=== PATIENT | female | born 1990 | race American Indian/Alaskan Native ===

== ENCOUNTER 2022-02-22 02:35 | Emergency (ER) | payer MEDICAID, OTHER ==
[2022-02-22] MEDS ORDERED: ASPIRIN 325 MG TAB PO ONE (04:48)
--- NOTE | 2022-02-22 05:36 | XRay Report ---
CHEST 1 VIEW INDICATION / CLINICAL INFORMATION: chest pain. FINDINGS: SUPPORT DEVICES: None. HEART / MEDIASTINUM: No significant abnormality. LUNGS / PLEURA: No significant pulmonary or pleural abnormality. No pneumothorax. ADDITIONAL FINDINGS: No significant additional findings. IMPRESSION: 1. No acute findings. Signer Name: Wood Oswald MD Signed: 02/22/2022 5:32 AM Workstation Name: [id number]
[2022-02-22 05:40] LABS: Basophils % (Auto) 0.7 % (0.0-1.8); Eosinophils # (Auto) 0.1 K/mm3 (0.0-0.4); Eosinophils % (Auto) 2.2 % (0.0-4.3); Hematocrit 34.6 % (30.3-42.9); Hemoglobin 11.2 gm/dl (10.1-14.3); Lymphocytes # (Auto) 2.3 K/mm3 (1.2-5.4); Lymphocytes % (Auto) 44.1 % (13.4-35.0); Mean Corpuscular HGB Conc 32 % (30-34); Mean Corpuscular Volume 88 fl (79-97); Monocytes # (Auto) 0.3 K/mm3 (0.0-0.8); Monocytes % (Auto) 6.4 % (0.0-7.3); Platelet Count 220 K/mm3 (140-440); Red Blood Count 3.93 M/mm3 (3.65-5.03); Red Cell Distribution Width 13.5 % (13.2-15.2)
[2022-02-22 05:57] LABS: Alanine Aminotransferase 12 units/L (7-56); Albumin 3.7 g/dL (3.9-5); Blood Urea Nitrogen 15 mg/dL (7-17); Calcium 9.1 mg/dL (8.4-10.2); Hemolysis Index 12
[2022-02-22 05:58] LABS: BUN/Creatinine Ratio 21
--- NOTE | 2022-02-22 06:05 | Emergency Department Report ---
<FRANCESCA CAMACHO - Last Filed: 02/22/22 06:36> ED Chest Pain HPI - General Chief Complaint: Chest Pain Stated Complaint: CHEST PAIN Source: EMS Mode of arrival: Stretcher Limitations: No Limitations - History of Present Illness Initial Comments: Patient is a 32-year-old -Japanese female with a history of asthma and chronic bronchitis who presented to the ED with complaint of acute onset persistent left-sided chest pain that started when she was walking on the street for the last 2 days. Patient also complains of persistent intermittent cough wh ich she describes as dry and raspy. Patient states that pain has been intermittent and persistent and it is sharp and reproducible when she walks or when she palpates the chest wall. Patient denies dizziness, syncope, shortness of breath, fever, chills, headache, palpitations, abdominal pain, diaphoresis, neck pain and upper extremity pain. MD Complaint: chest pain (Left-sided chest pain), other (Persistent dry cough) -: Sudden, days(s) (2) Onset: during exertion Pain Location: left chest Pain Radiation: none Severity scale (0 -10): 5 Quality: aching, sharp Consistency: intermittent Improves With: rest Worsens With: exertion, palpation, movement re: denies: nausea, vomting, diaphoresis, dyspnea, sense of impending doom Other Symptoms: cough. denies: fever, syncope, rash, acid taste in mouth, leg swelling, palpitations Treatments Prior to Arrival: none - Related Data On Oral Contraceptives: No Previous Rx's Medication Instructions Recorded Last Taken Type Benzonatate [Tessalon Perles] 100 mg PO Q8HR #30 cap 02/22/22 Unknown Rx Ibuprofen [Motrin] 800 mg PO Q8HR PRN #30 tablet 02/22/22 Unknown Rx methylPREDNISolone [Medrol 4MG 4 mg PO DAILY #21 tab 02/22/22 Unknown Rx DOSEPAK (21 tabs)] Allergies Allergy/AdvReac Type Severity Reaction Status Date / Time No Known Allergies Allergy Unverified 02/22/22 03:07 Heart Score - HEART Score History: Slightly suspicious EKG: Normal Age: < 45 Risk factors: No known risk factors Troponin: < normal limit HEART Score: 0 - EKG Read Time Time EKG Completed: 04:00 EKG Read Time: 04:05 - Critical Actions Critical Actions: 0-3 pts:0.9-1.7%risk of adverse cardiac event.Candidate for discharge ED Review of Systems Constitutional: denies: chills, fever Eyes: denies: eye pain, eye discharge, vision change ENT: denies: ear pain, throat pain Respiratory: cough. denies: shortness of breath, wheezing Cardiovascular: chest pain (Left-sided chest pain). denies: palpitations Endocrine: no symptoms reported Gastrointestinal: denies: abdominal pain, nausea, vomiting, diarrhea Genitourinary: denies: urgency, dysuria, discharge Musculoskeletal: denies: back pain, joint swelling, arthralgia Skin: denies: rash, lesions Neurological: denies: headache, weakness, paresthesias Psychiatric: denies: anxiety, depression Hematological/Lymphatic: denies: easy bleeding, easy bruising ED Past Medical Hx - Medications Home Medications: Home Medications Medication Instructions Recorded Confirmed Last Taken Type Benzonatate [Tessalon Perles] 100 mg PO Q8HR #30 cap 02/22/22 Unknown Rx Ibuprofen [Motrin] 800 mg PO Q8HR PRN #30 tablet 02/22/22 Unknown Rx methylPREDNISolone [Medrol 4MG 4 mg PO DAILY #21 tab 02/22/22 Unknown Rx DOSEPAK (21 tabs)] ED Physical Exam - General Limitations: No Limitations General appearance: alert, in no apparent distress - Head Head exam: Present: atraumatic, normocephalic, normal inspection - Eye Eye exam: Present: normal appearance, PERRL, EOMI Pupils: Present: normal accommodation - ENT ENT exam: Present: normal exam, normal orophraynx, mucous membranes moist, TM's normal bilaterally, normal external ear exam - Neck Neck exam: Present: normal inspection, full ROM. Absent: tenderness - Respiratory Respiratory exam: Present: normal lung sounds bilaterally, chest wall tenderness (Palpable reproducible left-sided chest wall tenderness). Absent: respiratory distress, wheezes, rales, rhonchi, accessory muscle use, decreased breath sounds, prolonged expiratory - Cardiovascular Cardiovascular Exam: Present: regular rate, normal rhythm, normal heart sounds. Absent: systolic murmur, diastolic murmur, rubs, gallop - GI/Abdominal GI/Abdominal exam: Present: soft, normal bowel sounds. Absent: tenderness, guarding, hyperactive bowel sounds, hypoactive bowel sounds, organomegaly - Extremities Exam Extremities exam: Present: normal inspection, full ROM, normal capillary refill - Back Exam Back exam: Present: normal inspection, full ROM. Absent: tenderness, CVA tend erness (R), CVA tenderness (L), muscle spasm, paraspinal tenderness, vertebral tenderness - Neurological Exam Neurological exam: Present: alert, oriented X3, CN II-XII intact, normal gait, reflexes normal - Psychiatric Psychiatric exam: Present: normal affect, normal mood - Skin Skin exam: Present: warm, dry, intact, normal color. Absent: rash JOHNNY score - Johnny Score Age > 65: (0) No Aspirin use within the Past 7 Days: (0) No 3 or more CAD Risk Factors: (0) No 2 or more Angina events in past 24 hrs: (0) No Known CAD with more than 50% Stenosis: (0) No Elevated Cardiac Markers: (0) No ST Deviation Greater than 0.5mm: (0) No JOHNNY Score: 0 ED Medical Decision Making - Lab Data Result diagrams: 02/22/22 05:18 02/22/22 05:18 - EKG Data EKG shows normal: sinus rhythm Rate: normal - EKG Data Interpretation: normal EKG 02/22/22 07:13 EKG shows normal sinus rhythm with a ventricular rate of [address] or T wave abnormalities. - Radiology Data Radiology results: report reviewed, image reviewed - Medical Decision Making This is a 32-year-old -Japanese female with a history of asthma and chronic bronchitis who presented to the ED with complaint of acute onset persistent left-sided chest pain that started when she was walking on the street for the last 2 days. Patient also complains of persistent intermittent cough which she describes as dry and raspy. Patient states that pain has been intermittent and persistent and it is sharp and reproducible when she walks or when she palpates the chest wall. In the ED, patient is alert and oriented x3 and is not in any distress. EKG shows normal sinus rhythm and a ventricular rate of [address] or T wave abnormalities. Chest x-ray showed no acute cardiopulmonary abnormalities or pneumonitis. Lab test results were reviewed and are all nonactionable including initial troponin. Patient's heart score is 0 and patient is PERC negative by Wells criteria. Based on the patient's history and physical exam findings, lab test results, EKG reports and imaging report, and the fact that the patient's heart score is 0 patient's symptoms are likely musculoskeletal chest wall due to costochondritis or muscle strain. Patient was discharged home on medications and advised to follow-up with her primary care physician in 5 to 7 days for reevaluation. - Differential Diagnosis ACS; PE; pneumonia; costochondritis; muscle strain ED Disposition Clinical Impression: Acute costochondritis, Acute nonspecific chest pain with low risk of coronary artery disease Muscle strain of chest wall Qualifiers: Encounter type: initial encounter Qualified Code(s): S29.011A - Strain of muscle and tendon of front wall of thorax, initial encounter Acute bronchitis Qualifiers: Bronchitis organism: other organism Qualified Code(s): J20.8 - Acute bronchitis due to other specified organisms Disposition: HOME / SELF CARE / HOMELESS Is pt being admited?: No Does the pt Need Aspirin: No Condition: Stable Instructions: Costochondritis, [id number], Chest Wall Pain, [id number], Muscle Strain, [id number], Acute Bronchitis, Adult, Vekk-xl-Rebb, Nonspecific Chest Pain, Adult, [id number]-bp-Mycs, Chest Pain (ED), Acute Bronchitis (ED) Additional Instructions: All lab test results were reviewed and are all nonactionable. Chest x-ray showed no acute cardiopulmonary abnormalities or pneumonitis. EKG shows normal sinus rhythm with a ventricular rate of [address] or T wave abnormalities. Your symptoms are likely musculoskeletal as they are reproduced on physical exam when the chest wall is palpated. You do not have any risk factors for coronary artery disease. Therefore take medications as needed for pain, drink plenty of fluids and follow-up with your primary care physician in 7 to 10 days for reevaluation. Return to the ED immediately if symptoms get worse. Prescriptions: methylPREDNISolone [Medrol 4MG DOSEPAK (21 tabs)] 4 mg PO DAILY #21 tab Ibuprofen [Motrin] 800 mg PO Q8HR PRN #30 tablet PRN Reason: Pain , Severe (7-10) Benzonatate [Tessalon Perles] 100 mg PO Q8HR #30 cap Referrals: [facility] [Provider Group] - 3-5 Days Time of Disposition: 06:03 Print Language: MACEDONIAN <KATE CHURCHILL U - Last Filed: 02/24/22 08:39> ED Review of Systems ROS: Stated complaint: CHEST PAIN Other details as noted in HPI ED Course Vital Signs 02/22/22 02/22/22 02:47 06:46 Temperature 98.1 F Pulse Rate 70 72 Respiratory 16 14 Rate Blood Pressure 150/72 144/70 [Left] O2 Sat by Pulse 98 100 Oximetry ED Medical Decision Making - Lab Data Result diagrams: 02/22/22 05:18 02/22/22 05:18 Laboratory Tests 02/22/22 02/22/22 05:18 05:18 WBC 5.2 RBC 3.93 Hgb 11.2 Hct 34.6 MCV 88 MCH 28 MCHC 32 RDW 13.5 Plt Count 220 Lymph % (Auto) 44.1 H [place] % (Auto) 6.4 Eos % (Auto) 2.2 Baso % (Auto) 0.7 Lymph # (Auto) 2.3 [place] # (Auto) 0.3 Eos # (Auto) 0.1 Baso # (Auto) 0.0 Seg Neutrophils % 46.6 Seg Neutrophils # 2.4 Sodium 141 Potassium 4.0 Chloride 105.8 Carbon Dioxide 24 Anion Gap 15 BUN 15 Creatinine 0.7 Estimated GFR > 60 BUN/Creatinine Ratio 21 Glucose 83 Calcium 9.1 Total Bilirubin < 0.20 AST 14 ALT 12 Alkaline Phosphatase 64 Troponin T < 0.010 Total Protein 6.9 Albumin 3.7 L Albumin/Globulin Ratio 1.2 CXR: no acute cardiopulmonary process EKG? PERC score 0 HEART score 1 I have reviewed the PA/SAMPLE SAWYER's note and plan of care. I was available for consultation as needed at all times during the patient's visit in the emergency department but was not consulted on this case. I agree with the plan to return to the ER if the patient's symptoms worsen or do not improve. - Medical Decision Making I have reviewed the PA/SAMPLE SAWYER's note and plan of care. I was available for consultation as needed at all times during the patient's visit in the emergency department but was not consulted on this case. I agree with the plan to return to the ER if the patient's symptoms worsen or do not improve. Critical care attestation.: If time is entered above; I have spent that time in minutes in the direct care of this critically ill patient, excluding procedure time.
[2022-02-22 06:57] VITALS: BP 144/70
--- NOTE | 2022-02-25 19:42 | Electrocardiograph Report ---
[facility] Test Date: 2022-02-22 Test Time: 02:56:48 Pat Name: VAIBHAV WU Department: Room: Gender: F Drag Sawyer: MARK : 1990 Requested By: KATE CHURCHILL Order Number: [id number] Reading MD: Trish Marinelli Measurements Intervals [place] Rate: 61 P: 41 SC: 197 QRS: 49 QRSD: 101 T: 45 QT: 414 QTc: 417 Interpretive Statements Sinus rhythm No previous ECG available for comparison Electronically Signed On 02-25-2022 19:42:00 EDT by Trish Marinelli
== END 2022-02-22 06:57 | disposition home or self-care (01) ==
LOC: ED 02:35
DX: S29.011A Strain of muscle and tendon of front wall of thorax, initial encounter (principal); M94.0 Chondrocostal junction syndrome [Tietze]; R07.9 Chest pain, unspecified; J02.8 Acute pharyngitis due to other specified organisms; X58.XXXA Exposure to other specified factors, initial encounter; Y93.89 Activity, other specified; Y92.89 Other specified places as the place of occurrence of the external cause; Y99.8 Other external cause status
CPT/HCPCS: 36415; 71045; 80053; 84484; 85025; 93005; 99284